=== PATIENT | male | born 2005 | race Caucasian/White ===

== ENCOUNTER 2023-12-31 00:30 | Emergency (ER) | payer OTHER ==
[~2023-12-31] VITALS: Ht 167.6 cm; Wt 81.3 kg
[2023-12-31] MEDS: predniSONE 20 MG TAB PO ONE (01:09)
[2023-12-31] MEDS: FAMOTIDINE 20 MG TAB PO ONE (01:09)
[2023-12-31] MEDS: CETIRIZINE (ZyrTEC) 10 MG TAB PO ONE (01:09)
[2023-12-31] MEDS ORDERED: CETI-24 PO (01:33)
[2023-12-31] MEDS ORDERED: PRED20TA PO (01:33)
[2023-12-31] MEDS: diphenhydrAMINE 50MG/ML VIAL IV STA (02:18)
[2023-12-31 02:45] VITALS: BP 129/75; TEMP 97.7; O2SAT 99
== END 2023-12-31 03:50 | disposition home or self-care (01) ==
LOC: M ED 00:30
DX: L50.1 Idiopathic urticaria (principal); Z79.52 Long term (current) use of systemic steroids
CPT/HCPCS: 96374; 99284; J1200; J7512

== ENCOUNTER 2024-07-18 11:18 | Emergency (ER) | payer OTHER ==
[~2024-07-18] VITALS: Ht 167.6 cm; Wt 81.8 kg
[~2024-07-18 11:18] MED LIST: CETI-24 PO; PRED20TA PO
[2024-07-18] MEDS ORDERED: IBUP200C25 PO (12:04)
[2024-07-18] MEDS ORDERED: ACET32TAB PO (12:04)
[2024-07-18 14:05] VITALS: BP 130/71; TEMP 97.1; O2SAT 100
== END 2024-07-18 14:46 | disposition home or self-care (01) ==
LOC: M ED 11:18
DX: S99.912A Unspecified injury of left ankle, initial encounter (principal); W50.0XXA Accidental hit or strike by another person, initial encounter; Y92.9 Unspecified place or not applicable; Y93.A9 Activity, other involving cardiorespiratory exercise; Y99.1 Military activity; Z79.2 Long term (current) use of antibiotics; Z79.52 Long term (current) use of systemic steroids; Z79.899 Other long term (current) drug therapy